=== PATIENT | male | born 1995 | race Two or more races ===

== ENCOUNTER 2018-05-07 05:49 | Emergency (ER) | payer SELFPAY ==
[~2018-05-07] VITALS: Ht 167.6 cm; Wt 76.7 kg
[2018-05-07] MEDS ORDERED: NKM (05:59)
[2018-05-07 06:00] VITALS: BP 123/59
[2018-05-07 06:05] VITALS: BP 123/59
--- NOTE | 2018-05-07 06:07 | Emergency Room Report ---
History of Present Illness General Chief Complaint: Fever Source: Patient Present Illness HPI This is a 22-year-old male with no past medical history. He presents with chief complaint of subjective fever. Onset was 3 hours ago. His woke him up because he felt hot. He felt some slight malaise. He has no other symptom. No cough or congestion. No runny nose. No abdominal pain. No nausea no vomiting. No dysuria frequency. He took 2 400 mg ibuprofen and came here. Allergies: Coded Allergies: No Known Allergies (Unverified , 05/07/18) Patient History Past Medical History: see triage record, old chart reviewed Past Surgical History: none Pertinent Family History: none Social History: Denies: smoking Immunizations: other Reviewed Nursing Documentation: PMH: Agreed; PSxH: Agreed Nursing Documentation-PMH Past Medical History: No Stated History Review of Systems Constitutional: Reports: fever Eye: Denies: eye pain, blurred vision ENT: Denies: ear pain, nose congestion, throat swelling Respiratory: Denies: cough, shortness of breath Cardiovascular: Denies: chest pain, palpitations Gastrointestinal: Denies: abdominal pain, diarrhea, nausea, vomiting Musculoskeletal: Denies: back pain, joint pain Skin: Denies: rash Neurological: Denies: headache, numbness Endocrine: Denies: increased thirst, increased urine Hematologic/Lymphatic: Denies: easy bruising All Other Systems: negative except mentioned in HPI Physical Exam Vital Signs Date Time Temp Pulse Resp B/P (MAP) Pulse Ox O2 Delivery O2 Flow Rate FiO2 05/07/18 05:52 99.1 83 18 123/59 96 Room Air 99.1 vitals with low-grade temperature Sp02 EP Interpretation: reviewed, normal General Appearance: well appearing, no apparent distress, alert Head: normocephalic, atraumatic Eyes: bilateral eye PERRL, bilateral eye EOMI ENT: hearing grossly normal, normal pharynx Neck: full range of motion, supple, no meningismus Respiratory: chest non-tender, lungs clear, normal breath sounds Cardiovascular #1: regular rate, rhythm, no murmur Gastrointestinal: normal bowel sounds, non tender, no mass, no organomegaly, no bruit, non-distended Musculoskeletal: back normal, gait/station normal, normal range of motion Psychiatric: mood/affect normal Skin: warm/dry Medical Decision Making Diagnostic Impression: Primary Impression: Fever Qualified Codes: R50.9 - Fever, unspecified ER Course Patient with low-grade fever. Onset was only 3 hours ago. This is very early in the disease process. He looks well. No evidence of meningitis, mastoiditis , pneumonia, otitis media, acute abdomen or other serious bacterial infection. I see no need for blood work or diagnostic study at this moment in time. Again he looks well nontoxic in appearance. We'll do [id number] and if he get worse come to come back for testing. Last Vital Signs Date Time Temp Pulse Resp B/P (MAP) Pulse Ox O2 Delivery O2 Flow Rate FiO2 05/07/18 05:52 99.1 83 18 123/59 96 Room Air 99.1 Status: unchanged Disposition: HOME, SELF-CARE Condition: Stable Patient Instructions: Fever, Adult, [id number] Additional Instructions: Take ibuprofen as needed for fever and aches. Follow-up your Dr. in 2-3 days for recheck if not better. Your disease process is very early in process. Too early to determine if this is a benign condition or a serious condition. Return if symptoms don't improve. MILAN CAMEJO M.D. May 07, 2018 06:07
== END 2018-05-07 06:05 | disposition home or self-care (01) ==
LOC: EMR 06:00
DX: R50.9 Fever, unspecified (principal)
CPT/HCPCS: 99282